=== PATIENT | female | born 1950 | race Asian ===

== ENCOUNTER 2019-08-14 03:00 | Emergency (ER) | payer OTHER ==
[~2019-08-14] VITALS: Ht 160 cm; Wt 78.9 kg
[2019-08-14 03:07] VITALS: Ht 160 cm; Wt 78.9 kg
[2019-08-14 05:55] VITALS: BP 120/65
== END 2019-08-14 05:55 | disposition home or self-care (01) ==
LOC: ED 03:00
DX: T78.1XXA Other adverse food reactions, not elsewhere classified, initial encounter (principal); I10 Essential (primary) hypertension; E11.9 Type 2 diabetes mellitus without complications; E78.00 Pure hypercholesterolemia, unspecified; X58.XXXA Exposure to other specified factors, initial encounter
CPT/HCPCS: J1200; J2930; J7040

== ENCOUNTER 2019-08-15 18:16 | Emergency (ER) | payer OTHER ==
[~2019-08-15] VITALS: Ht 160 cm; Wt 79.4 kg
[2019-08-15 18:30] VITALS: Ht 160 cm; Wt 79.4 kg
[2019-08-15 22:17] VITALS: BP 161/79
== END 2019-08-15 22:17 | disposition home or self-care (01) ==
LOC: ED 18:16
DX: T78.1XXA Other adverse food reactions, not elsewhere classified, initial encounter (principal); T78.49XA Other allergy, initial encounter; I10 Essential (primary) hypertension; E11.9 Type 2 diabetes mellitus without complications; E78.00 Pure hypercholesterolemia, unspecified; X58.XXXA Exposure to other specified factors, initial encounter
CPT/HCPCS: J1100; J1200

== ENCOUNTER 2020-12-01 17:52 | Inpatient (IN) | payer OTHER, SELFPAY ==
[~2020-12-01] VITALS: Ht 167.6 cm; Wt 73.5 kg
[2020-12-01 17:53] VITALS: Ht 167.6 cm; Wt 73.5 kg
[2020-12-01 19:14] LABS: BASOPHIL % 1.2 % (0.2-1.3); PLATELET COUNT 303 x10^3mcL (179-408)
[2020-12-01 19:20] LABS: RED CELL DISTRIBUTION WIDTH 18.2 % (12.3-17.7)
[2020-12-01 19:34] LABS: BILIRUBIN TOTAL 0.4 mg/dL (0.20-1.00); CALCIUM 8.6 mg/dL (8.5-10.1); CARBON DIOXIDE 25.2 mmol/L (21-32); POTASSIUM SERUM 3.7 mmol/L (3.5-5.1); TOTAL PROTEIN, SERUM 7.4 g/dL (6.4-8.2)
[2020-12-01 19:39] LABS: ALBUMIN 3.1 g/dL (3.4-5.0)
[2020-12-01 19:42] LABS: CREATININE SERUM 4.3 mg/dL (0.6-1.0)
[2020-12-01 20:05] LABS: rbc morphology (normal/abnorm) ABNORMAL (NORMAL)
[2020-12-02] VITALS (7 sets, daily range): BP systolic 150–173; BP diastolic 71–89
[2020-12-02 07:49] LABS: BASOPHIL % 1.5 % (0.2-1.3); PLATELET COUNT 247 x10^3mcL (179-408)
[2020-12-02 08:15] LABS: CALCIUM 8.1 mg/dL (8.5-10.1); CARBON DIOXIDE 20.7 mmol/L (21-32); POTASSIUM SERUM 3.7 mmol/L (3.5-5.1)
[2020-12-02 08:37] LABS: rbc morphology (normal/abnorm) NORMAL (NORMAL)
[2020-12-02 08:49] LABS: CREATININE SERUM 4.4 mg/dL (0.6-1.0)
[2020-12-02 16:27] LABS: IRON 45 ug/dL (50-170); TOTAL IRON BINDING CAPACITY 250 ug/dL (250-450)
[2020-12-03 00:21] VITALS: BP 154/74
[2020-12-03 05:27] VITALS: BP 171/88
[2020-12-03 06:29] LABS: CARBON DIOXIDE 21.9 mmol/L (21-32); MAGNESIUM 2.1 mg/dL (1.8-2.4); PHOSPHOROUS 6.5 mg/dL (2.5-4.9); POTASSIUM SERUM 4.2 mmol/L (3.5-5.1)
[2020-12-03 07:07] LABS: BASOPHIL % 1.1 % (0.2-1.3); PLATELET COUNT 248 x10^3mcL (179-408)
[2020-12-03 07:10] LABS: CREATININE SERUM 4.1 mg/dL (0.6-1.0)
[2020-12-03 08:26] VITALS: BP 163/84
[2020-12-03 16:46] VITALS: BP 146/71
[2020-12-03 20:30] VITALS: BP 146/74
[2020-12-03 21:16] VITALS: BP 163/81
[2020-12-04 05:29] VITALS: BP 168/81
[2020-12-04 07:02] VITALS: BP 165/82
[2020-12-04 07:24] LABS: PLATELET COUNT 226 x10^3mcL (179-408)
[2020-12-04 07:39] LABS: BILIRUBIN TOTAL 0.39 mg/dL (0.20-1.00); CALCIUM 8.4 mg/dL (8.5-10.1); CARBON DIOXIDE 22.5 mmol/L (21-32); MAGNESIUM 2.2 mg/dL (1.8-2.4); PHOSPHOROUS 5.7 mg/dL (2.5-4.9); POTASSIUM SERUM 4.2 mmol/L (3.5-5.1); TOTAL PROTEIN, SERUM 6.2 g/dL (6.4-8.2)
[2020-12-04 07:41] LABS: ALBUMIN 2.6 g/dL (3.4-5.0)
[2020-12-04 07:45] LABS: CHOLESTEROL/HDL RATIO 3.3
[2020-12-04 08:35] VITALS: BP 171/82
[2020-12-04 12:25] VITALS: BP 150/66
[2020-12-04 20:28] VITALS: BP 169/83
[2020-12-04 23:55] VITALS: BP 162/88
[2020-12-05 05:15] VITALS: BP 180/81
[2020-12-05] MEDS ORDERED: AMLODIPINE BESY10 M2 PO (06:10)
[2020-12-05 06:37] VITALS: BP 156/70
[2020-12-05 07:16] LABS: BASOPHIL % 0.9 % (0.2-1.3); PLATELET COUNT 217 x10^3mcL (179-408)
[2020-12-05 07:36] LABS: CALCIUM 8.9 mg/dL (8.5-10.1); CARBON DIOXIDE 21.6 mmol/L (21-32); CREATININE SERUM 3.8 mg/dL (0.6-1.0); MAGNESIUM 2.4 mg/dL (1.8-2.4); PHOSPHOROUS 5.7 mg/dL (2.5-4.9); POTASSIUM SERUM 4.4 mmol/L (3.5-5.1)
[2020-12-05 08:26] LABS: rbc morphology (normal/abnorm) NORMAL (NORMAL)
[2020-12-05 08:58] VITALS: BP 123/81
[2020-12-05 12:30] VITALS: BP 151/77
[2020-12-05 13:05] VITALS: BP 151/77
[2020-12-05] MEDS ORDERED: [UNRECOGNIZED DRUG - CODE] PO (13:12)
[2020-12-05] MEDS ORDERED: CAT0.1 PO (13:12)
[2020-12-05] MEDS ORDERED: NOR10 PO (13:13)
[2020-12-05] MEDS ORDERED: CAR1 PO (13:14)
== END 2020-12-05 16:20 | disposition home or self-care (01) | DRG 438 ==
LOC: ED 17:52 → DU 21:57
PROVIDERS: Emergency Medicine; Internal Medicine Gastroenterology; ADMIT Internal Medicine; ATTEND Internal Medicine
PROC: 0DB68ZX Excision of Stomach, Via Natural or Artificial Opening Endoscopic, Diagnostic (ICD-10-PCS; principal; 2020-12-03 13:15)
DX: K85.90 Acute pancreatitis without necrosis or infection, unspecified (principal); N17.0 Acute kidney failure with tubular necrosis; I16.1 Hypertensive emergency; E46 Unspecified protein-calorie malnutrition; Q61.3 Polycystic kidney, unspecified; N18.5 Chronic kidney disease, stage 5; E11.43 Type 2 diabetes mellitus with diabetic autonomic (poly)neuropathy; E78.00 Pure hypercholesterolemia, unspecified; Z79.899 Other long term (current) drug therapy; Z79.891 Long term (current) use of opiate analgesic; Z79.01 Long term (current) use of anticoagulants; E86.0 Dehydration; K31.84 Gastroparesis; D63.8 Anemia in other chronic diseases classified elsewhere; E78.5 Hyperlipidemia, unspecified; E11.22 Type 2 diabetes mellitus with diabetic chronic kidney disease; Z68.24 Body mass index [BMI] 24.0-24.9, adult; Z20.822 Contact with and (suspected) exposure to COVID-19
CPT/HCPCS: 43235; 74181; 82962; C9113; G0378; J0360; J0885-EC; J1200; J1610; J2060; J2250; J2310; J2405; J3010; J3490; J7030; J7060; J8597; U0003